=== PATIENT | female | born 1980 | race American Indian/Alaskan Native ===

== ENCOUNTER 2020-02-16 21:51 | Emergency (ER) | payer MEDICAID ==
[~2020-02-16] VITALS: Ht 162.6 cm; Wt 95.5 kg
[2020-02-16 21:54] VITALS: BP 126/80
[2020-02-16] MEDS ORDERED: PENI250T2 PO (22:50)
[2020-02-16] MEDS ORDERED: HYDROcodone/acetaminophen 5mg/325mg tablet PO ONE (22:55)
== END 2020-02-16 23:01 | disposition home or self-care (01) ==
LOC: ER 21:52
DX: K04.7 Periapical abscess without sinus (principal); J02.9 Acute pharyngitis, unspecified; Z79.899 Other long term (current) drug therapy
CPT/HCPCS: 99283

== ENCOUNTER 2020-11-21 19:31 | Emergency (ER) | payer MEDICAID ==
[~2020-11-21] VITALS: Ht 160 cm; Wt 102.3 kg
[2020-11-21 19:49] VITALS: BP 131/103
[2020-11-21] MEDS ORDERED: acetaminophen 325mg tablet PO ONE (20:40)
[2020-11-21] MEDS ORDERED: dexamethasone sod phosphate 10mg/ml inj PO STA (20:43)
--- NOTE | 2020-11-22 12:53 | NUR ---
PT CALLED FOR STREP RESULTS INSTRUCTED LAST NOC PRIOR TO FILLING ABX. PT INFORMED OF NEG RESULTS.
== END 2020-11-21 21:07 | disposition home or self-care (01) ==
LOC: ER 19:32
DX: J02.9 Acute pharyngitis, unspecified (principal); F17.200 Nicotine dependence, unspecified, uncomplicated
CPT/HCPCS: 87081; 87880; 99283; J1100

== ENCOUNTER 2021-07-09 09:16 | Emergency (ER) | payer MEDICAID ==
[~2021-07-09] VITALS: Ht 160 cm; Wt 104.5 kg
[2021-07-09 09:33] VITALS: BP 142/101
[2021-07-09] MEDS ORDERED: AMOX-422 PO (09:54)
[2021-07-09] MEDS ORDERED: BENZ-16 PO (09:54)
[2021-07-09] MEDS ORDERED: PRED20TA PO (10:12)
== END 2021-07-09 10:13 | disposition home or self-care (01) ==
LOC: ER 09:17
DX: J02.9 Acute pharyngitis, unspecified (principal); Z20.822 Contact with and (suspected) exposure to COVID-19; Z79.2 Long term (current) use of antibiotics; Z79.899 Other long term (current) drug therapy
CPT/HCPCS: 36415; 87081; 87880; 99283; U0003; U0005

== ENCOUNTER 2021-07-25 00:04 | Emergency (ER) | payer MEDICAID ==
[~2021-07-25] VITALS: Ht 162.6 cm; Wt 102.3 kg
[2021-07-25 00:59] VITALS: BP 154/106
[2021-07-25] MEDS ORDERED: ONDA4TAB12 PO (01:59)
[2021-07-25] MEDS ORDERED: MAG355OR18 PO (01:59)
== END 2021-07-25 02:07 | disposition home or self-care (01) ==
LOC: ER 00:05
DX: J02.9 Acute pharyngitis, unspecified (principal); Z20.822 Contact with and (suspected) exposure to COVID-19; Z79.899 Other long term (current) drug therapy
CPT/HCPCS: 36415; 82948; 99283; U0003; U0005

== ENCOUNTER 2021-08-24 22:14 | Emergency (ER) | payer MEDICAID ==
[~2021-08-24] VITALS: Ht 162.6 cm; Wt 93.0 kg
[~2021-08-24 22:14] MED LIST: MAG355OR18 PO; ONDA4TAB12 PO
[2021-08-24] MEDS ORDERED: CEFD300C3 PO (23:21)
[2021-08-24 23:34] VITALS: BP 148/98
== END 2021-08-24 23:35 | disposition home or self-care (01) ==
LOC: ER 22:15
DX: H92.03 Otalgia, bilateral (principal); H61.23 Impacted cerumen, bilateral; Z79.2 Long term (current) use of antibiotics; Z79.899 Other long term (current) drug therapy
CPT/HCPCS: 99283

== ENCOUNTER 2022-01-31 20:58 | Emergency (ER) | payer MEDICAID ==
[~2022-01-31] VITALS: Ht 162.6 cm; Wt 93.1 kg
[~2022-01-31 20:58] MED LIST changes: +CEFD300C3 PO; -MAG355OR18 PO
[2022-01-31 21:02] VITALS: BP 127/78
[2022-01-31] MEDS ORDERED: albuterol 2.5 MG/3 ML nebule NEB ONE (22:40)
== END 2022-02-01 00:14 | disposition home or self-care (01) ==
LOC: ER 20:59
DX: R05.9 Cough, unspecified (principal); R32 Unspecified urinary incontinence; R06.02 Shortness of breath; R07.81 Pleurodynia; R07.0 Pain in throat; R07.89 Other chest pain; R51.9 Headache, unspecified; I10 Essential (primary) hypertension; E11.9 Type 2 diabetes mellitus without complications; K22.70 Barrett's esophagus without dysplasia; F17.200 Nicotine dependence, unspecified, uncomplicated; Z79.2 Long term (current) use of antibiotics; Z79.899 Other long term (current) drug therapy
CPT/HCPCS: 71046; 94640; 94760; 99283

== ENCOUNTER 2022-02-20 17:21 | Emergency (ER) | payer MEDICAID ==
[~2022-02-20] VITALS: Ht 162.6 cm; Wt 91.0 kg
[2022-02-20 17:28] VITALS: BP 143/90
== END 2022-02-20 20:13 | disposition left against medical advice (07) ==
LOC: ER 17:22
DX: F41.9 Anxiety disorder, unspecified (principal); Z53.21 Procedure and treatment not carried out due to patient leaving prior to being seen by health care provider

== ENCOUNTER 2022-04-24 08:43 | Emergency (ER) | payer MEDICAID ==
[~2022-04-24] VITALS: Ht 162.6 cm; Wt 93.2 kg
[2022-04-24 08:49] VITALS: BP 153/104
[2022-04-24] MEDS ORDERED: NIRM1TAB5 PO (11:21)
[2022-04-24] MEDS ORDERED: ALBU8.5H17 IH (11:21)
[2022-04-24] MEDS ORDERED: BENZ-38 PO (11:21)
== END 2022-04-24 11:30 | disposition home or self-care (01) ==
LOC: ER 08:44
DX: U07.1 COVID-19 (principal); R09.81 Nasal congestion; E66.9 Obesity, unspecified; E11.9 Type 2 diabetes mellitus without complications; G47.33 Obstructive sleep apnea (adult) (pediatric); I10 Essential (primary) hypertension; J44.9 Chronic obstructive pulmonary disease, unspecified; Z79.899 Other long term (current) drug therapy; Z68.35 Body mass index [BMI] 35.0-35.9, adult
CPT/HCPCS: 99283

== ENCOUNTER 2023-09-11 21:50 | Emergency (ER) | payer MEDICAID ==
[~2023-09-11] VITALS: Ht 160 cm; Wt 89.2 kg
[~2023-09-11 21:50] MED LIST changes: +ALBU8.5H17 IH; +NIRM1TAB5 PO
[2023-09-11 21:58] VITALS: BP 150/95; PULSE 106; RESP 16; TEMP 98.4; O2SAT 100
[2023-09-11] MEDS ORDERED: ketorolac trometh inj. 60 MG/2 ML VIAL IM ONE (22:50)
[2023-09-11] MEDS ORDERED: NAPR-56 PO (22:51)
== END 2023-09-11 23:33 | disposition home or self-care (01) ==
LOC: ER 21:51
DX: M25.562 Pain in left knee (principal); J44.9 Chronic obstructive pulmonary disease, unspecified; E11.9 Type 2 diabetes mellitus without complications; I10 Essential (primary) hypertension; Z79.899 Other long term (current) drug therapy
CPT/HCPCS: 73564; 96372; 99283; J1885